=== PATIENT | male | born 1985 | race Caucasian/White ===

== ENCOUNTER 2021-03-16 19:49 | Emergency (ER) | payer SELFPAY ==
[2021-03-16] MEDS ORDERED: Ketorolac 30 MG/ML SDV IM ONE (21:47)
--- NOTE | 2021-03-16 21:53 | EDM.PDOC ---
ED HPI GENERAL MEDICAL PROBLEM - General Chief Complaint: General Stated Complaint: TOOTH AND CHEST PAIN Time Seen by Provider: 03/16/21 21:25 Source of Information: Reports: Patient History Limitations: Reports: No Limitations - History of Present Illness INITIAL COMMENTS - FREE TEXT/NARRATIVE: Patient presents the ER with ongoing dental pain x1 year that he rates is now a 10 out of 10 yesterday got up this morning felt like it was draining inside of his mouth and he did have some discharge coming from outside of the upper jaw rated the pain is now a 9 out of 10. Sharp dull and throbbing. He has seen his dentist for this who referred him to an oral surgeon in [place] but he has not had a chance to go. He also has a prescription of antibiotics of clindamycin that he was supposed to get filled but did not until now but he has not taken any of it as of yet. He also has some chest pain is been going on for the last 2 years intermittently and states this episode is been going on for a week he points midsternal nonradiating rates it about a 6 out of 10 he states it is always the same and it has not changed. He says it gets worse with certain movements or when he gets very anxious. He has been seen about the chest pain before and worked up in regards to EKG and labs which were negative the last time was a couple months ago. 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 He states he is okay with going home and finishing the antibiotics that he has seen and has had a full prescription of clindamycin and he did have the money to buy any new prescriptions. He also says that he has had ongoing hypertension for at least the last year or 2 but he thinks it may be of little bit more today than it has been secondary to the dental pain. He denies any endorgan signs or symptoms other than the chest pain He has no other complaints Duration: Week(s): Location: Reports: Chest Severity: Severe Improves with: Reports: None, Movement Worsens with: Reports: Movement Associated Symptoms: Reports: No Other Symptoms, Chest Pain, Headaches, Other (Headache today dull throbbing on the left side secondary to dental pain not the worst headache of his life). Denies: Confusion, Cough, cough w sputum, Diaphoresis, Fever/Chills, Loss of Appetite, Malaise, Nausea/Vomiting, Shortness of Breath, Syncope ED ROS GENERAL - Review of Systems Review Of Systems: See Below Constitutional: Reports: No Symptoms HEENT: Reports: No Symptoms. Denies: Ear Discharge, Ear Pain, Eye Pain, Nosebleed, Nose Pain, Rhinitis, Sinus Problem, Throat Pain, Throat Swelling Respiratory: Reports: No Symptoms Cardiovascular: Reports: Chest Pain. Denies: Blood Pressure Problem, Claudication, Dyspnea on Exertion, Edema, Lightheadedness, Orthopnea, Palpitations, Syncope Endocrine: Reports: No Symptoms GI/Abdominal: Reports: No Symptoms : Reports: No Symptoms Musculoskeletal: Reports: No Symptoms Skin: Reports: No Symptoms Neurological: Reports: No Symptoms Psychiatric: Reports: No Symptoms Hematologic/Lymphatic: Reports: No Symptoms Immunologic: Reports: No Symptoms ED EXAM, GENERAL - Physical Exam Exam: See Below Exam Limited By: No Limitations General Appearance: Alert, WD/WN, No Apparent Distress Eye Exam: Bilateral Eye: Normal Inspection, PERRL Ears: Normal External Exam, Normal Canal, Hearing Grossly Normal, Normal TMs Nose: Normal Inspection, Normal Mucosa, No Blood Throat/Mouth: Normal Inspection, Normal Lips, Normal Gums, Normal Oropharynx, Other (He has no sinus tenderness to palpation there is a small noted abscess approximately at the left #14). No: Normal Teeth, Normal Voice, No Airway Compromise, Dysphagia, Inflammation Head: Atraumatic, Normocephalic Neck: Normal Inspection, Supple, Non-Tender, Full Range of Motion Respiratory/Chest: No Respiratory Distress, Lungs Clear, Normal Breath Sounds, N o Accessory Muscle Use, Chest Non-Tender Cardiovascular: Normal Peripheral Pulses, Regular Rate, Rhythm, No Edema, No Gallop, No JVD, No Murmur, No Rub GI/Abdominal: Normal Bowel Sounds, Soft, Non-Tender, No Organomegaly, No Distention Extremities: Normal Inspection, Normal Range of Motion, Non-Tender, No Pedal Edema Neurological: Alert, Oriented, CN II-XII Intact, Normal Cognition, Normal Gait, Normal Reflexes, No Motor/Sensory Deficits Psychiatric: Normal Affect, Normal Mood Skin Exam: Warm, Dry, Intact, Normal Color, No Rash Lymphatic: No Adenopathy #1 Interpretation EKG Date: 03/16/21 Time: 21:20 Rhythm: NSR [place]: Normal P-Wave: Present QRS: Normal ST-T: Normal QT: Normal Course - Vital Signs Text/Narrative:: EKG was checked normal sinus rhythm no acute findings Patient has a full prescription 10-day course of clindamycin 500 mg every 8 hours Toradol 30 mg we will reassess afterwards blood pressure comes down patient not having any endorgan signs symptoms will send home with his prescription and follow-up with his primary care provider and dentist Patient states his pain is much better and he is okay with going home he will follow-up with a primary care provider in regards to his hypertension chest pain and with his dentist in regards to his ongoing chronic dental pain and abscess Blood pressure was [id number] - Orders/Labs/Meds Meds: Medications Discontinued Medications Generic Name Dose Route Start Last Admin Trade Name Freq PRN Reason Stop Dose Admin Acetaminophen 1,000 mg 03/16/21 21:57 Acetaminophen 500 Mg Tab PO 03/16/21 21:58 ONETIME ONE Ketorolac Tromethamine 30 mg 03/16/21 21:47 Ketorolac 30 Mg/Ml Sdv IM 03/16/21 21:48 ONETIME ONE Departure - Departure Time of Disposition: 22:40 Disposition: Home, Self-Care 01 Clinical Impression: Dental abscess, Non-cardiac chest pain, Hypertension - Discharge Information *PRESCRIPTION DRUG MONITORING PROGRAM REVIEWED*: No *COPY OF PRESCRIPTION DRUG MONITORING REPORT IN PATIENT FRANCISCO JAVIER: No Referrals: PCP,None [Primary Care Provider] - Forms: ED Department Discharge - Problem List & Annotations (1) Dental abscess SNOMED Code(s): 053653136 Code(s): K04.7 - PERIAPICAL ABSCESS WITHOUT SINUS Status: Acute Current Visit: Yes (2) Hypertension SNOMED Code(s): 99752327 Code(s): I10 - ESSENTIAL (PRIMARY) HYPERTENSION Status: Acute Current Visit: Yes (3) Non-cardiac chest pain SNOMED Code(s): 490381771 Code(s): R07.89 - OTHER CHEST PAIN Status: Acute Current Visit: Yes
[2021-03-16] MEDS ORDERED: Acetaminophen 500 MG Tab PO ONE (21:57)
== END 2021-03-16 22:40 | disposition home or self-care (01) ==
LOC: VM.ED 19:49
DX: K04.7 Periapical abscess without sinus (principal); R07.2 Precordial pain; I10 Essential (primary) hypertension
CPT/HCPCS: 93010; 96372; 99284; 99284-25; A9270-GY; J1885

== ENCOUNTER 2021-06-08 08:37 | Emergency (ER) | payer SELFPAY ==
[2021-06-08] MEDS ORDERED: LORazepam 1 MG Tab PO ONE (08:44)
[2021-06-08] MEDS ORDERED: Ketorolac 30 MG/ML SDV IM ONE (09:13)
[2021-06-08 09:24] LABS: CHLORIDE,CL 102 mmol/L (98-107); SODIUM,NA 139 mmol/L (136-145)
[2021-06-08 09:26] LABS: ANION GAP 13.3 mmol/L (5-15)
== END 2021-06-08 11:06 | disposition home or self-care (01) ==
LOC: VM.ED 08:37
DX: R09.1 Pleurisy (principal); R41.0 Disorientation, unspecified
CPT/HCPCS: 36415; 71046; 80053; 84450; 84484; 85025; 93005; 96372; 99284; 99284-25; A9270-GY; J1885

== ENCOUNTER 2021-06-21 02:05 | Observation (INO) | payer MEDICAID ==
[2021-06-21 03:03] LABS: BARBITURATE SCREEN,URINE NEGATIVE (NEGATIVE); BENZODIAZEPINES SCREEN,URINE NEGATIVE (NEGATIVE); BUPRENORPHINE SCREEN,URINE NEGATIVE (NEGATIVE); METHAMPHETAMINE SCREEN, URINE NEGATIVE (NEGATIVE); THC SCREEN,URINE 50 NG/ML NEGATIVE (NEGATIVE)
[2021-06-21 03:19] LABS: PTT,PARTIAL THROMBOPLSTIN TIME 27.7 SEC (25.6-32.8)
[2021-06-21 03:20] LABS: CHLORIDE,CL 104 mmol/L (98-107); SODIUM,NA 141 mmol/L (136-145)
[2021-06-21 03:22] LABS: ACETAMINOPHEN 0 ug/ml (10-30); ANION GAP 13.4 mmol/L (5-15)
[2021-06-21] MEDS ORDERED: Flumazenil 0.1 MG/ML 5 ML MDV IVPUSH PRN (03:51)
[2021-06-21] MEDS ORDERED: LORazepam 2 MG/ML SDV IVPUSH PRN (03:51)
[2021-06-21] MEDS ORDERED: Lactated Ringers 1,000 ML IV SCH (04:00)
== END 2021-06-21 10:30 | disposition home or self-care (01) ==
LOC: VM.ED 02:05 → VM.MS 03:48
PROVIDERS: ADMIT Physician Assistant; ATTEND Physician Assistant
DX: T43.592A Poisoning by other antipsychotics and neuroleptics, intentional self-harm, initial encounter (principal); T44.6X2A Poisoning by alpha-adrenoreceptor antagonists, intentional self-harm, initial encounter; I10 Essential (primary) hypertension; F41.9 Anxiety disorder, unspecified; F33.9 Major depressive disorder, recurrent, unspecified; Z79.899 Other long term (current) drug therapy; Z20.822 Contact with and (suspected) exposure to COVID-19
CPT/HCPCS: 36415; 80053; 80143; 80305-QW; 80307; 83735; 84100; 84443; 84484; 85025; 85610; 85730; 86140; 93005; 99285-25; G0378; J7120; U0002